=== PATIENT | female | born 2000 | race Caucasian/White ===

== ENCOUNTER 2019-06-29 10:55 | Emergency (ER) | payer SELFPAY ==
[~2019-06-29] VITALS: Ht 157.5 cm; Wt 45.0 kg
[~2019-06-29 10:55] MED LIST: ADVIL JUNIOR S100 M1; AMOXICILLIN500 MG PO; AMOXICILLIN875 MG PO; ELIMITE5 % EX; HYDROXYZ HCL25 MG PO; NO HOME MEDS; TET/DIP TOX1 ML IM; VARIVAX SC
[2019-06-29 11:12] LABS: URINE BILIRUBIN - DIPSTICK NEGATIVE (NEGATIVE); URINE BLOOD DIPSTICK NEGATIVE (NEGATIVE); URINE COLOR YELLOW; URINE GLUCOSE - DIPSTICK NEGATIVE (NEGATIVE); URINE KETONE NEGATIVE (NEGATIVE); URINE LEUK ESTERASE NEGATIVE (Negative); URINE NITRITE - DIPSTICK NEGATIVE (Negative); URINE PH 7.5 (4.5-8.0); URINE PROTEIN - DIPSTICK TRACE mg/dL (NEG-TRACE); URINE SPECIFIC GRAVITY 1.015
[2019-06-29 11:15] LABS: URINE CLARITY CLEAR
[2019-06-29] MEDS ORDERED: PRE-NATAL PO (11:29)
[2019-06-29 11:34] VITALS: BP 119/71
== END 2019-06-29 11:34 | disposition home or self-care (01) | DRG 951 ==
LOC: ED 10:55
DX: Z32.01 Encounter for pregnancy test, result positive (principal)

== ENCOUNTER 2019-07-16 17:29 | Emergency (ER) | payer OTHER ==
[~2019-07-16] VITALS: Ht 157.5 cm; Wt 50.0 kg
[~2019-07-16 17:29] MED LIST changes: +PRE-NATAL PO
[2019-07-16] MEDS ORDERED: CLARITHROMYCIN500 MG PO (18:23)
[2019-07-16 18:30] VITALS: BP 116/58
== END 2019-07-16 18:30 | disposition home or self-care (01) ==
LOC: ED 17:29
DX: O99.519 Diseases of the respiratory system complicating pregnancy, unspecified trimester (principal); J01.90 Acute sinusitis, unspecified; Z3A.00 Weeks of gestation of pregnancy not specified

== ENCOUNTER 2020-05-31 21:12 | Emergency (ER) | payer OTHER ==
[~2020-05-31] VITALS: Ht 157.5 cm; Wt 48.1 kg
[~2020-05-31 21:12] MED LIST changes: +CLARITHROMYCIN500 MG PO
[2020-05-31 22:06] LABS: HEMATOCRIT 35.7 % (37.0-47.0); HEMOGLOBIN 10.9 g/dl (12.0-16.0); IMMATURE GRANULOCYTES 0.2 % (0.0-5.0); MEAN CELL VOLUME 77.3 fL CALC (80.0-100.0); MEAN CORPUSCULAR HGB 23.6 pG CALC (26.0-32.0); MEAN CORPUSCULAR HGB CONC 30.5 g/dL CAL (32.0-36.0); NEUT# 2.11 thou/uL (2.00-7.15); RED BLOOD COUNT 4.62 mill/uL (4.20-5.60)
[2020-05-31 22:07] LABS: URINE BILIRUBIN - DIPSTICK NEGATIVE (NEGATIVE); URINE BLOOD DIPSTICK NEGATIVE (NEGATIVE); URINE COLOR YELLOW; URINE GLUCOSE - DIPSTICK NEGATIVE (NEGATIVE); URINE KETONE NEGATIVE (NEGATIVE); URINE LEUK ESTERASE NEGATIVE (NEGATIVE); URINE NITRITE - DIPSTICK NEGATIVE (Negative); URINE PROTEIN - DIPSTICK NEGATIVE (NEG-TRACE); URINE UROBILINOGEN - DIPSTICK 0.2 E.U./dL (0.2)
[2020-05-31 22:23] LABS: ALBUMIN 4.4 g/dL (3.2-5.0); ALKALINE PHOSPHATASE 58 u/l (38-126); AMYLASE 60 u/l (30-110); BILIRUBIN, TOTAL 0.5 mg/dL (0.0-1.4); BUN 13 mg/dL (7-17); BUN/CREATININE RATIO 18 (12-20 (CALC)); CHLORIDE 106 mmol/l (95-108); CREATININE 0.7 mg/dL (0.5-1.0); GFR > 60 ML/MIN (>=60 (CALC)); GFR FOR AFR.AMER. > 60 ML/MIN (>=60 (CALC)); LIPASE 99 u/l (23-300); SGOT/AST 24 u/l (14-36); SODIUM 139 mmol/l (137-146); TOTAL PROTEIN 6.9 g/dL (6.3-8.2)
[2020-05-31 22:24] LABS: ANION GAP 11 (6-22 (CALC)); CARBON DIOXIDE 26 mmol/l (22-30); POTASSIUM 4.2 mmol/l (3.5-5.1)
[2020-05-31 22:30] VITALS: BP 118/64
[2020-05-31] MEDS ORDERED: NAPROXEN500 MG PO (22:31)
[2020-05-31] MEDS ORDERED: MIRALAX3350 N1 PO (22:31)
[2020-05-31] MEDS ORDERED: PREVACID30 M3 PO (22:31)
== END 2020-05-31 22:45 | disposition home or self-care (01) ==
LOC: ED 21:12
PROVIDERS: Emergency Medicine
DX: K29.70 Gastritis, unspecified, without bleeding (principal); K59.00 Constipation, unspecified; M79.10 Myalgia, unspecified site

== ENCOUNTER 2021-06-08 19:49 | Emergency (ER) | payer OTHER ==
[~2021-06-08] VITALS: Ht 157.5 cm; Wt 45.0 kg
[~2021-06-08 19:49] MED LIST changes: +MIRALAX3350 N1 PO; +NAPROXEN500 MG PO; +PREVACID30 M3 PO
[2021-06-08 20:30] VITALS: BP 130/62
[2021-06-08 21:22] LABS: URINE BILIRUBIN - DIPSTICK NEGATIVE (NEGATIVE); URINE BLOOD DIPSTICK NEGATIVE (NEGATIVE); URINE COLOR YELLOW; URINE GLUCOSE - DIPSTICK 500 mg/dL (NEGATIVE); URINE KETONE NEGATIVE (NEGATIVE); URINE LEUK ESTERASE NEGATIVE (NEGATIVE); URINE PROTEIN - DIPSTICK NEGATIVE (NEG-TRACE); URINE SPECIFIC GRAVITY 1.025; URINE UROBILINOGEN - DIPSTICK 0.2 E.U./dL (0.2)
[2021-06-08 21:23] LABS: URINE NITRITE - DIPSTICK NEGATIVE (Negative)
== END 2021-06-08 22:45 | disposition home or self-care (01) ==
LOC: ED 19:49
DX: Z87.442 Personal history of urinary calculi (principal); Z87.440 Personal history of urinary (tract) infections; Z86.16 Personal history of COVID-19; R10.9 Unspecified abdominal pain

== ENCOUNTER 2021-07-25 13:03 | Emergency (ER) | payer OTHER ==
[~2021-07-25] VITALS: Ht 165.1 cm; Wt 44.0 kg
[2021-07-25 13:34] LABS: IMMATURE GRANULOCYTES 0.2 % (0.0-5.0); MEAN CELL VOLUME 78.2 fL CALC (80.0-100.0); MEAN CORPUSCULAR HGB 26.2 pG CALC (26.0-32.0); MEAN CORPUSCULAR HGB CONC 33.6 g/dL CAL (32.0-36.0); NEUT# 2.38 thou/uL (2.00-7.15); RED BLOOD COUNT 5.45 mill/uL (4.20-5.60); RED CELL DISTRI WIDTH 12.5 % (11.5-15.5)
[2021-07-25 13:37] LABS: HEMATOCRIT 42.6 % (37.0-47.0); HEMOGLOBIN 14.3 g/dl (12.0-16.0)
[2021-07-25 13:40] LABS: ALBUMIN 4.7 g/dL (3.2-5.0); AMYLASE 65 u/l (30-110); ANION GAP 14 (6-22 (CALC)); BUN 16 mg/dL (7-17); BUN/CREATININE RATIO 49 (12-20 (CALC)); CARBON DIOXIDE 25 mmol/l (22-30); CHLORIDE 105 mmol/l (95-108); CREATININE 0.3 mg/dL (0.5-1.0); GFR > 60 ML/MIN (>=60 (CALC)); GFR FOR AFR.AMER. > 60 ML/MIN (>=60 (CALC)); LIPASE 105 u/l (23-300); POTASSIUM 4.2 mmol/l (3.5-5.1); SGOT/AST 31 u/l (14-36); SODIUM 141 mmol/l (137-146); TOTAL PROTEIN 7.7 g/dL (6.3-8.2)
[2021-07-25 13:43] LABS: ALKALINE PHOSPHATASE 117 u/l (38-126); BILIRUBIN, TOTAL 0.9 mg/dL (0.0-1.4)
[2021-07-25 14:51] LABS: TSH, 3RD GENERATION < 0.02 uIU/mL (0.47 - 4.68)
[2021-07-25 15:33] LABS: URINE BILIRUBIN - DIPSTICK NEGATIVE (NEGATIVE); URINE BLOOD DIPSTICK LARGE (NEGATIVE); URINE COLOR YELLOW; URINE GLUCOSE - DIPSTICK NEGATIVE (NEGATIVE); URINE KETONE NEGATIVE (NEGATIVE); URINE LEUK ESTERASE NEGATIVE (NEGATIVE); URINE PROTEIN - DIPSTICK NEGATIVE (NEG-TRACE); URINE SPECIFIC GRAVITY 1.025; URINE UROBILINOGEN - DIPSTICK 0.2 E.U./dL (0.2)
[2021-07-25 15:34] LABS: URINE NITRITE - DIPSTICK NEGATIVE (Negative)
[2021-07-25 15:42] LABS: URINE SQUAMOUS EPITHELIAL CELL FEW EPI/hpf (0-FEW); URINE WBC 0-2 WBC/hpf (0-5)
[2021-07-25] MEDS ORDERED: TENORMIN PO (16:55)
[2021-07-25 18:09] VITALS: BP 117/70
== END 2021-07-25 18:11 | disposition home or self-care (01) ==
LOC: ED 13:03
PROVIDERS: Emergency Medicine
DX: R07.9 Chest pain, unspecified (principal); E05.90 Thyrotoxicosis, unspecified without thyrotoxic crisis or storm; E01.0 Iodine-deficiency related diffuse (endemic) goiter; F41.9 Anxiety disorder, unspecified; Z86.16 Personal history of COVID-19; Z80.8 Family history of malignant neoplasm of other organs or systems

== ENCOUNTER 2023-10-04 21:44 | Emergency (ER) | payer OTHER ==
[~2023-10-04] VITALS: Ht 157.5 cm; Wt 47.0 kg
[~2023-10-04 21:44] MED LIST changes: +PENICILLN VK500 MG PO; +TENORMIN PO; +TRAMADOL HYDROC50 M1 PO
[2023-10-04] MEDS ORDERED: METHIMAZOLE10 MG PO (22:37)
[2023-10-04 23:39] VITALS: BP 129/78
== END 2023-10-04 23:30 | disposition home or self-care (01) ==
LOC: ED 21:44
DX: N64.4 Mastodynia (principal); F12.90 Cannabis use, unspecified, uncomplicated; Z86.16 Personal history of COVID-19; Z85.828 Personal history of other malignant neoplasm of skin

== ENCOUNTER 2023-10-14 13:12 | Emergency (ER) | payer OTHER ==
[~2023-10-14] VITALS: Ht 157.5 cm; Wt 49.0 kg
[~2023-10-14 13:12] MED LIST changes: +METHIMAZOLE10 MG PO
[2023-10-14] MEDS ORDERED: NAPROXEN500 MG PO (14:13)
[2023-10-14 14:19] VITALS: BP 121/67
== END 2023-10-14 14:26 | disposition home or self-care (01) ==
LOC: ED 13:12
DX: M79.631 Pain in right forearm (principal)

== ENCOUNTER 2024-04-10 00:39 | Emergency (ER) | payer OTHER ==
[~2024-04-10] VITALS: Ht 157.5 cm; Wt 48.0 kg
[2024-04-10 01:15] VITALS: BP 126/76
== END 2024-04-10 02:05 | disposition home or self-care (01) ==
LOC: ED 00:39
DX: J32.9 Chronic sinusitis, unspecified (principal); Z86.16 Personal history of COVID-19

== ENCOUNTER 2024-12-04 15:28 | Emergency (ER) | payer SELFPAY ==
[~2024-12-04] VITALS: Ht 157.5 cm; Wt 52.0 kg
[2024-12-04 15:53] VITALS: BP 115/77
[2024-12-04 16:22] VITALS: BP 105/70
[2024-12-04 16:25] LABS: BASO% 0.4 % (0-3); EOS% 2.6 % (0-8); IMMATURE GRANULOCYTES 0.2 % (0.0-5.0); LYMPH% 9.2 % (15-41); MEAN CELL VOLUME 81.7 fL CALC (80.0-100.0); MEAN CORPUSCULAR HGB 27.7 pG CALC (26.0-32.0); MEAN CORPUSCULAR HGB CONC 33.9 g/dL CAL (32.0-36.0); MONO% 12.7 % (2-13); NEUT# 4.09 thou/uL (2.00-7.15); NEUT% 74.9 % (42-76); RED BLOOD COUNT 4.37 mill/uL (4.20-5.60); RED CELL DISTRI WIDTH 12.7 % (11.5-15.5)
[2024-12-04 16:26] LABS: HEMATOCRIT 35.7 % (37.0-47.0); HEMOGLOBIN 12.1 g/dl (12.0-16.0)
[2024-12-04 16:46] LABS: ALBUMIN 4.3 g/dL (3.2-5.0); BILIRUBIN, TOTAL 0.6 mg/dL (0.02-1.3); CREATININE 0.6 mg/dL (0.5-1.0)
[2024-12-04 16:47] LABS: POTASSIUM 3.2 mmol/l (3.5-5.1)
[2024-12-04 16:54] VITALS: BP 127/79
[2024-12-04 17:35] LABS: URINE BILIRUBIN - DIPSTICK Negative (NEGATIVE); URINE BLOOD DIPSTICK Large (NEGATIVE); URINE GLUCOSE - DIPSTICK 100 mg/dL (NEGATIVE); URINE KETONE Negative (NEGATIVE); URINE LEUK ESTERASE Negative (NEGATIVE); URINE NITRITE - DIPSTICK Negative (Negative); URINE PROTEIN - DIPSTICK Negative (NEG-TRACE); URINE UROBILINOGEN - DIPSTICK 0.2 E.U./dL (0.2)
[2024-12-04] MEDS ORDERED: POTASSIUM CHLORIDE 20 MEQ/TAB PO ONE (17:35)
[2024-12-04 17:36] LABS: URINE COLOR Yellow
[2024-12-04 17:42] LABS: URINE RBC 0-2 RBC/hpf (0-5); URINE SQUAMOUS EPITHELIAL CELL FEW EPI/hpf (0-FEW); URINE TRANSITIONAL EPI. CELLS RARE hpf; URINE WBC 0-2 WBC/hpf (0-5)
[2024-12-04 18:21] VITALS: BP 127/79
== END 2024-12-04 18:22 | disposition home or self-care (01) | DRG 303 ==
LOC: ED 15:28
PROVIDERS: Nurse Practitioner
DX: I99.9 Unspecified disorder of circulatory system (principal)